=== PATIENT | female | born 1960 | race Asian ===

== ENCOUNTER → 2021-10-25 | Day surgery (SDC) | payer OTHER ==
[2021-10-23 10:39] LABS: Basophils # (auto) 0.1 10 ^3/uL (0-0.2); Basophils % (auto) 1.3 % (0.0-2.0); Eosinophils # (auto) 0 10 ^3/uL (0-0.8); Eosinophils % (auto) 0.4 % (0.0-7.0); Hematocrit 36.8 % (36.0-46.0); Hemoglobin 12.6 g/dL (12.2-16.2); Lymphocytes # (auto) 1.4 10 ^3/uL (0.4-5.4); Lymphocytes % (auto) 31.5 % (10.0-50.0); Mean Corpuscular Hemoglobin 30.1 pg (28.0-32.0); Mean Corpuscular Hgb Conc. 34.4 g/dL (32.0-36.0); Mean Corpuscular Volume 87.6 fL (80.0-100.0); Monocytes # (auto) 0.4 10 ^3/uL (0-1.3); Monocytes % (auto) 8.7 % (0.0-12.0); Neutrophils # (auto) 2.6 10 ^3/uL (1.6-8.6); Neutrophils % (auto) 58.1 % (37.0-80.0); Nucleated Red Blood Cells % 0.1 %; Red Cell Distribution Width 12.7 % (11.8-14.3); White Blood Cell 4.4 10^3/uL (4.4-10.8)
[2021-10-23 11:01] LABS: INR 0.99 (0.9-1.15); Partial Thromboplastin Time 27.1 sec (23.6-33.0)
[2021-10-23 13:14] LABS: Albumin 3.5 g/dL (3.4-5.0); Calcium 9.6 mg/dL (8.5-10.1); Potassium 4.1 mmol/L (3.5-5.1)
[2021-10-23 13:17] LABS: BUN/Creatinine Ratio 21.8; Bilirubin, Total 0.3 mg/dL (0.2-1.0); Total Protein 7.6 g/dL (6.4-8.2)
[~2021-10-25] VITALS: Ht 160 cm; Wt 60.8 kg
[~2021-10-25] MED LIST: CETI1TAB36 PO; FLUT1SPR5; LIDOCAINE VISCOUS 2% 15ML UD ONE; MIDAZOLAM HCL 5 MG/ML-1ML VIAL ONE; OMEP20TA PO; PROP60CA34 PO; SODIUM CHLORIDE LOCK 10 ML ONE; TOLT2CAP PO; diphenhdrAMINE HCL 50 MG/1 ML VL ONE; fentaNYL CITRATE 100 MCG/2 ML VL ONE
[2021-10-25 17:58] VITALS: BP 119/64
== END | disposition home or self-care (01) ==
LOC: GI 13:32
PROVIDERS: ATTEND Internal Medicine Gastroenterology
DX: K21.00 Gastro-esophageal reflux disease with esophagitis, without bleeding (principal); K44.9 Diaphragmatic hernia without obstruction or gangrene; K25.9 Gastric ulcer, unspecified as acute or chronic, without hemorrhage or perforation; K29.50 Unspecified chronic gastritis without bleeding; Z98.890 Other specified postprocedural states; Z79.899 Other long term (current) drug therapy; Z88.1 Allergy status to other antibiotic agents; Z88.6 Allergy status to analgesic agent; Z20.822 Contact with and (suspected) exposure to COVID-19
CPT/HCPCS: 36415; 43239; 80053; 85025; 85610; 85730; 88305; 88342; J1200; J2250; J3010; J7030; U0003; 99152

== ENCOUNTER → 2022-10-12 | Day surgery (SDC) | payer OTHER ==
[2022-10-10 10:06] LABS: Basophils # (auto) 0 10 ^3/uL (0-0.2); Basophils % (auto) 0.9 % (0.0-2.0); Eosinophils # (auto) 0.1 10 ^3/uL (0-0.8); Eosinophils % (auto) 1.2 % (0.0-7.0); Hematocrit 38.3 % (36.0-46.0); Hemoglobin 13.2 g/dL (12.2-16.2); Lymphocytes # (auto) 1.4 10 ^3/uL (0.4-5.4); Lymphocytes % (auto) 32.8 % (10.0-50.0); Mean Corpuscular Hemoglobin 30.6 pg (28.0-32.0); Mean Corpuscular Hgb Conc. 34.6 g/dL (32.0-36.0); Mean Corpuscular Volume 88.5 fL (80.0-100.0); Monocytes # (auto) 0.3 10 ^3/uL (0-1.3); Monocytes % (auto) 6.5 % (0.0-12.0); Neutrophils # (auto) 2.6 10 ^3/uL (1.6-8.6); Neutrophils % (auto) 58.6 % (37.0-80.0); Nucleated Red Blood Cells % 0.1 %; Red Blood Cells 4.33 10^6/uL (4.0-5.20); White Blood Cell 4.4 10^3/uL (4.4-10.8)
[2022-10-10 10:32] LABS: Albumin 3.5 g/dL (3.4-5.0); Calcium 9.1 mg/dL (8.5-10.1); Potassium 4.2 mmol/L (3.5-5.1)
[2022-10-10 10:38] LABS: BUN/Creatinine Ratio 21.2; Bilirubin, Total 0.4 mg/dL (0.2-1.0); Total Protein 7.4 g/dL (6.4-8.2)
[2022-10-10 10:53] LABS: INR 0.96 (0.9-1.15); Partial Thromboplastin Time 28.6 sec (24.6-33.4)
[~2022-10-12] VITALS: Ht 160 cm; Wt 58.1 kg
[~2022-10-12] MED LIST changes: -LIDOCAINE VISCOUS 2% 15ML UD ONE; -MIDAZOLAM HCL 5 MG/ML-1ML VIAL ONE; +SIMETHICONE 40 MG/0.6 ML ORAL DROP ONE; -SODIUM CHLORIDE LOCK 10 ML ONE; -diphenhdrAMINE HCL 50 MG/1 ML VL ONE; +fentaNYL CITRATE 100 MCG/2 ML VL IV ONE
[2022-10-12] MEDS: MIDAZOLAM HCL 2MG/2ML 2ml VIAL (1mg/ml) ONE ×2 (15:31→15:37)
[2022-10-12] MEDS: diphenhdrAMINE HCL 50 MG/1 ML VL ONE ×2 (15:31→15:36)
[2022-10-12 16:22] VITALS: BP 115/68
== END | disposition home or self-care (01) ==
LOC: GI 13:40
PROVIDERS: ATTEND Internal Medicine Gastroenterology
DX: Z12.11 Encounter for screening for malignant neoplasm of colon (principal); K64.8 Other hemorrhoids; I10 Essential (primary) hypertension; K21.9 Gastro-esophageal reflux disease without esophagitis; Z79.899 Other long term (current) drug therapy; Z20.822 Contact with and (suspected) exposure to COVID-19
CPT/HCPCS: 36415; 45378; 80053; 85025; 85610; 85730; J1200; J2250; J3010; J7030; U0003

== ENCOUNTER 2024-12-07 13:37 | Inpatient (IN) | payer OTHER ==
[~2024-12-07] VITALS: Ht 160 cm; Wt 77.0 kg
[~2024-12-07 13:37] MED LIST changes: -SIMETHICONE 40 MG/0.6 ML ORAL DROP ONE; -fentaNYL CITRATE 100 MCG/2 ML VL IV ONE; -fentaNYL CITRATE 100 MCG/2 ML VL ONE
--- NOTE | 2024-12-07 14:20 | ED.PDOC ---
History of Present Illness HPI Comments 64-year-old female brought in by EMS presents with a chief complaint of generalized weakness and speech problem. Patient has had expressive aphasia for the past x 3 days. Patient mentions that this all started when she was given Bactrim by her psychologist industrial organizational for an infection in her throat. Accu Check was 122. Vital Signs Stable. Chief Complaint: General Weakness Time Seen by MD: 14:01 Reviewed Notes: Medications, Allergies Allergies: Coded Allergies: Aspirin (Unverified Adverse Reaction, Mild, bruising, 10/24/21) Ciprofloxacin (Unverified Adverse Reaction, Mild, N/V, 10/24/21) Home Meds Reported Medications Cetirizine Hcl (ZYRTEC ALLERGY) 10 Mg Tab, 10 MG PO, TAB 10/24/21 Propranolol Hcl (Inderal La) 60 Mg Cap, 60 MG PO, CAP 10/24/21 Omeprazole (Gnp Omeprazole) 20 Mg Tab, 20 MG PO, TAB 10/24/21 Fluticasone Propionate (Nasal) (Flonase Allergy Relief) 50 Mcg/Act Spr, 50 MCG NA, SPRAY 10/24/21 Tolterodine Tartrate (Detrol La) 2 Mg Cap, 2 MG PO, CAP 10/24/21 Information Source: Patient, Emergency Med Personnel Mode of Arrival: EMS Severity: Moderate Timing: Days Duration: Since onset Prehospital treatment: Accucheck, Monitoring Manager Past Medical History PAST MEDICAL HISTORY: Asthma, HTN Surgical History: Denies all surgeries CHEMICAL DETECTION EXPERT History: Denies all CHEMICAL DETECTION EXPERT Hx Family History Family History: Reviewed,noncontributory to illness Social History Smoker: Non-Smoker Alcohol: Denies ETOH Use Drugs: Denies Drug Use Constitutional: reports: weakness; denies: chills, diaphoresis, fatigue, fever, malaise, sweats, others EENTM: denies: blurred vision, double vision, ear bleeding, ear discharge, ear drainage, ear pain, ear ringing, eye pain, eye redness, hearing loss, mouth pain, mouth swelling, nasal discharge, nose bleeding, nose congestion, nose pain, photophobia, tearing, throat pain, throat swelling, voice changes, others Respiratory: denies: cough, hemoptysis, orthopnea, SOB at rest, shortness of breath, SOB with excertion, stridor, wheezing, others Cardiovascular: denies: chest pain, dizzy spells, diaphoresis, Dyspnea on exertion, edema, irregular heart beat, left arm pain, lightheadedness, palpitations, PND, syncope, others Gastrointestinal: denies: abdomen distended, abdominal pain, blood streaked bowels, constipated, diarrhea, dysphagia, difficulty swallowing, hematemesis, melena, nausea, poor appetite, poor fluid intake, rectal bleeding, rectal pain, vomiting, others Genitourinary: denies: abnormal vagina bleeding, burning, dyspareunia, dysuria, flank pain, frequency, hematuria, incontinence, pain, , vagina discharge, urgency, others Neurological: reports: speech problems (EXPRESSIVE APHASIA); denies: dizziness, fainting, headache, left sided numbness, left sided weakness, numbness, paresthesia, pre-existing deficit, right sided numbness, right sided weakness, seizure, tingling, tremors, weakness, others Musculoskeletal: denies: back pain, gout, joint pain, joint swelling, muscle pain, muscle stiffness, neck pain, others Integumetry: denies: bruises, change in color, change in hair/nails, dryness, laceration, lesions, lumps, rash, wounds, others Allergic/Immunocompromised: denies: Difficulty Healing, Frequent Infections, Hives, Itching, others Hematologic/Lymphatic: denies: anemia, blood clots, easy bleeding, easy bruising, swollen glands, others Endocrine: denies: excessive hunger, excessive sweating, excessive thirst, excessive urination, flushing, intolerance to cold, intolerance to heat, unexplained weight gain, unexplained weight loss, others Psychiatric: denies: anxiety, bipolar disorder, depression, hopeless, panic disorder, schizophrenia, sleepless, suicidal, others All Other Systems: Reviewed and Negative Physical Exam General Appearance: No Apparent Distress, Normal HEENT: Normal ENT Inspection, Pharynx Normal, TMs Normal Neck: Full Range of Motion, Non-Tender, Normal, Normal Inspection Respiratory: Chest Non-Tender, Lungs Clear, No Accessory Muscle Use, No Res piratory Distress, Normal Breath Sounds Cardiovascular: No Edema, No JVD, No Murmur, No Gallop, Normal Peripheral Pulses, Regular Rate/Rhythm Breast Exam: Deferred Gastrointestinal: No Organomegaly, Non Tender, No Pulsatile Mass, Normal Bowel Sounds, Soft Genitalia: Deferred Pelvic: Deferred Rectal: Deferred Extremities: No calf tenderness, Normal capillary refill, Normal inspection, Normal range of motion, Non-tender, No pedal edema Musculoskeletal : Apperance: Normal Neurologic: Alert, supply chain director II-XII nml as Tested, No Motor Deficits, Normal Affect, Normal Mood, No Sensory Deficits Cerebellar Function: Normal Reflexes: Normal Skin: Dry, Normal Color, Warm Lymphatic: No Adenopathy Was a procedure done? Was a procedure done?: No Differential Dx Considerations may include: cva, intracranial mass, intracranial bleed, dehydration, electrolyte disorders, hypoglycemia, medication effects X-Ray, Labs, Meds, VS Vital Signs Date Time Temp Pulse Resp B/P (MAP) Pulse Ox O2 Delivery O2 Flow Rate FiO2 12/07/24 13:50 67 12/07/24 13:45 98.7 64 20 132/76 (94) 98 98.7 Time of 1ST Reevaluation: 14:31 Reevaluation 1ST: Unchanged Time of 2ND Reevaluation: 16:29 Reevaluation 2ND: eloped Patient Education/Counseling: Other (eloped) Family Education/Counseling: No Family Present Additional Information lab had not been able to find pt. we could not find pt. she apparently eloped Departure 1 Departure Time of Disposition: 16:29 Impression: Primary Impression: Weakness Disposition: 07 LEFT AWOL/ELOPED Condition: Other (unknown) Critical Care Note Critical Care Time?: Yes (45 min-critical care time only) Critical care comment: Due to concerns for patients condition deteriorating, the care required my highest level of attention and readiness to intervene. I assessed the patient, reviewed the medical records, ordered the appropriate tests and treatments, then reassessed for results and responsiveness. I communicated with medical personnel and consultants and formulated a plan of care. Total critical care time excludes any procedures Stability Stability form required: No Heart Score Heart Score: Heart Score Response (Comments) Value History N/A 0 EKG N/A 0 Age N/A 0 Risk Factors N/A 0 Troponin N/A 0 Total 0 I personally scribed for ROSA SAHA MD ([email or web address]) on 12/07/24 at 14:20. Electronically submitted by Marcelino Dickey ([email or web address]). ROSA SAHA MD Dec 07, 2024 14:20
--- NOTE | 2024-12-07 14:48 | ECG ---
[facility] Test Date: 2024-12-07 Test Time: 13:50:36 Pat Name: SHALONDA SEAMAN Department: ED Room: 0290 Gender: F Kiss Machine Operator: dewey : 1960 Requested By: ROSA SAHA Order Number: [id number] Reading MD: Pramod Elkins Measurements Intervals [place] Rate: 67 P: 83 OK: 135 QRS: 55 QRSD: 88 T: -29 QT: 432 QTc: 456 Interpretive Statements Sinus rhythm RSR' in V1 or V2, right VCD or RVH Baseline wander in lead(s) V2 Electronically Signed On 12-09-2024 17:08:29 PDT by Pramod Elkins Please click the below link to view image of tracing.
--- NOTE | 2024-12-07 15:01 | DVH ---
AP portable chest HISTORY: weakness Comparison: None FINDINGS: Heart size normal. Aorta tortuous. No infiltrates or effusions. IMPRESSION: 1. No acute cardiopulmonary pathology
--- NOTE | 2024-12-07 15:02 | DVH ---
CT brain without contrast CLINICAL INDICATION: Altered mental status FINDINGS: The study was performed in a multidetector scanner. This study performed taking axial image s from the skull base up to the vertex. Both brain and bone windows are photographed. Dose lowering techniques have been used including automated exposure control and adjustment of mA and /or KV according to patient size. Normal and symmetrical shape and density of brain parenchyma above and below the tentorium is seen. T here is no mass, midline shift or hydrocephalus. No intra/extra-axial collections demonstrated. There is no intracranial hemorrhage. The calvarium is intact. IMPRESSION: 1. Normal brain and skull. Computed Tomographic Radiation Dosimetry Report: Total CTDI vol = 53 mGy Total DLP = 946 mGy-cm All C T scans at this medical facility are performed using dose modulation techniques as appropriate to a p erformed exam including the following: Automated exposure control was utilized; adjustment of the MA and/or KvP according to patient size; and use of iterative reconstruction technique.
[2024-12-07 16:40] LABS: Basophils # (auto) 0 10 ^3/uL (0-0.2); Basophils % (auto) 0.5 % (0.0-2.0); Eosinophils # (auto) 0 10 ^3/uL (0-0.8); Eosinophils % (auto) 0.2 % (0.0-7.0); Hematocrit 37.4 % (36.0-46.0); Hemoglobin 12.5 g/dL (12.2-16.2); Lymphocytes # (auto) 1.3 10 ^3/uL (0.4-5.4); Lymphocytes % (auto) 29.9 % (10.0-50.0); Mean Corpuscular Hemoglobin 29.3 pg (28.0-32.0); Mean Corpuscular Hgb Conc. 33.4 g/dL (32.0-36.0); Mean Corpuscular Volume 87.7 fL (80.0-100.0); Monocytes # (auto) 0.3 10 ^3/uL (0-1.3); Monocytes % (auto) 7.9 % (0.0-12.0); Neutrophils # (auto) 2.6 10 ^3/uL (1.6-8.6); Neutrophils % (auto) 61.5 % (37.0-80.0); Nucleated Red Blood Cells % 0.1 %; Platelet Count (auto) 146 10^3/uL (140-450); Red Blood Cells 4.27 10^6/uL (4.0-5.20); Red Cell Distribution Width 13.1 % (11.8-14.3); White Blood Cell 4.3 10^3/uL (4.4-10.8)
[2024-12-07 16:51] LABS: Chloride 105 mmol/L (98-107); Potassium 3.8 mmol/L (3.5-5.1); Sodium 141 mmol/L (136-145)
[2024-12-07 16:52] LABS: Anion Gap 10 (5-15); Calcium 10.2 mg/dL (8.7-10.4); Carbon Dioxide 26 mmol/L (20-31)
[2024-12-07 16:57] LABS: BUN/Creatinine Ratio 16.3 (10.0-20.0); Blood Urea Nitrogen 14 mg/dL (9-23); Glucose 102 mg/dL (74-106)
[2024-12-07] MEDS ORDERED: ALBUTEROL SULF 2.5 MG/0.5ML(0.5%) NEB SOLN NEB PRN (23:15)
[2024-12-07] MEDS ORDERED: ACETAMINOPHEN 325 MG TAB PO PRN (23:15)
[2024-12-07] MEDS ORDERED: ONDANSETRON HCL 4 MG/2 ML VIAL IV PRN (23:15)
[2024-12-07] MEDS ORDERED: SUMAtriptan SUCCINATE 25 MG TAB PO PRN (23:15)
[2024-12-07] MEDS ORDERED: HYDROcodone-ACET 5/325MG TAB PO PRN (23:15)
[2024-12-08] VITALS (10 sets, daily range): BP systolic 127–140; BP diastolic 58–85; PULSE 60–95; RESP 12–18; TEMP 98–98.2; O2SAT 96–100
--- NOTE | 2024-12-08 04:15 | DVHHP2 ---
History of Present Illness Reason for Visit: Generalized weakness History of Present Illness 64-year-old female presents for evaluation of generalized weakness. Patient reports starting clarithromycin prescribed by her vp digital marketing social media and crm seven days ago. She states that two days after that she has developed a headache with increased fatigue, expressive aphasia, left lower extremity weakness and sensitivity to light. Patient has stopped taking the antibiotic. She states his symptoms have not subsided. Denies chest pain or shortness for breath. No slurred speech or unilateral weakness. Past Medical History Hypertension and asthma Past Surgical History Denies Family History Noncontributory Smoke: No ALCOHOL: none Drugs: None Lives: with Family Review of Systems Review of Systems Review of systems are currently negative otherwise addressed in HPI. Allergies: Coded Allergies: Aspirin (Unverified Adverse Reaction, Mild, bruising, 10/24/21) Ciprofloxacin (Unverified Adverse Reaction, Mild, N/V, 10/24/21) Medications Current Medications Medications Dose Ordered Sig/Rachelle Route Start Time Stop Time Status Last Admin Dose Admin Propranolol HCl 60 mg DAILY PO 12/08/24 10:00 Albuterol 2.5 mg Q6HPRN PRN NEB 12/07/24 23:15 Sumatriptan Succinate 50 mg Q2HP PRN PO 12/07/24 23:15 Acetaminophen/ Hydrocodone Bitart 1 tab Q4HP PRN PO 12/07/24 23:15 Ondansetron HCl 4 mg Q4HP PRN IV 12/07/24 23:15 Enoxaparin Sodium 40 mg DAILY SC 12/08/24 10:00 Acetaminophen 650 mg Q6HP PRN PO 12/07/24 23:15 Exam Vital Signs Vital Signs Date Time Temp Pulse Resp B/P (MAP) Pulse Ox O2 Delivery O2 Flow Rate FiO2 12/08/24 00:18 68 18 132/76 96 0.0 21 12/08/24 00:00 Room Air* 12/07/24 13:45 98.7 98.7 Exam Gen: 64-year-old female in no apparent distress. Skin: Warm, dry, normal color and texture, no rash. HEENT: Normocephalic atraumatic, mucous membranes moist and pink. Neck: Cervical and supraclavicular nodes normal without enlargement, trachea is midline, thyroid gland is normal without masses. Pulmonary: Clear to auscultation and percussion bilaterally. Cardiac: Regular rate and rhythm. No murmur Abdomen: Soft, nontender, nondistended, bowel sounds present all 4 quadrants, no guarding, no rigidity, no organomegaly. Extremities: No cyanosis, clubbing, no edema Neuro: Cranial nerves II through XII grossly intact, normal affect and speech, no focal motor deficits. Labs/Xrays ORDERING PHYSICIAN: ROSA SAHA MD PROCEDURE(s): HWOCT - HEAD WITHOUT CONTRAST REASON: difficulty speaking ORDER NUMBER(s): [id number], ACCESSION NUMBER(s): [id number] CT brain without contrast CLINICAL INDICATION: Altered mental status FINDINGS: The study was performed in a multidetector scanner. This study performed taking axial images from the skull base up to the vertex. Both brain and bone windows are photographed. Dose lowering techniques have been used including automated exposure control and adjustment of mA and/or KV according to patient size. Normal and symmetrical shape and density of brain parenchyma above and below the tentorium is seen. There is no mass, midline shift or hydrocephalus. No intra /extra-axial collections demonstrated. There is no intracranial hemorrhage. The calvarium is intact. IMPRESSION: 1. Normal brain and skull. Computed Tomographic Radiation Dosimetry Report: Total CTDI vol = 53 mGy Total DLP = 946 mGy-cm All CT scans at this medical facility are performed using dose modulation techniques as appropriate to a performed exam including the following : Automated exposure control was utilized; adjustment of the MA and/or KvP according to patient size; and use of iterative reconstruction technique. RING PHYSICIAN: ROSA SAHA MD PROCEDURE(s): CXRP - CHEST PORTABLE REASON: weakness ORDER NUMBER(s): [id number], ACCESSION NUMBER(s): [id number] AP portable chest HISTORY: weakness Comparison: None FINDINGS: Heart size normal. Aorta tortuous. No infiltrates or effusions. IMPRESSION: 1. No acute cardiopulmonary pathology Labs Test 12/07/24 16:15 Range/Units White Blood Count 4.3 L 4.4-10.8 10^3/uL Red Blood Count 4.27 4.0-5.20 10^6/uL Hemoglobin 12.5 12.2-16.2 g/dL Hematocrit 37.4 36.0-46.0 % Mean Corpuscular Volume 87.7 80.0-100.0 fL Mean Corpuscular Hemoglobin 29.3 28.0-32.0 pg Mean Corpuscular Hemoglobin Concent 33.4 32.0-36.0 g/dL Red Cell Distribution Width 13.1 11.8-14.3 % Platelet Count 146 140-450 10^3/uL Mean Platelet Volume 7.6 6.9-10.8 fL Neutrophils (%) (Auto) 61.5 37.0-80.0 % Lymphocytes (%) (Auto) 29.9 10.0-50.0 % Monocytes (%) (Auto) 7.9 0.0-12.0 % Eosinophils (%) (Auto) 0.2 0.0-7.0 % Basophils (%) (Auto) 0.5 0.0-2.0 % Neutrophils # (Auto) 2.6 1.6-8.6 10 ^3/uL Lymphocytes # (Auto) 1.3 0.4-5.4 10 ^3/uL Monocytes # (Auto) 0.3 0-1.3 10 ^3/uL Eosinophils # (Auto) 0 0-0.8 10 ^3/uL Basophils # (Auto) 0 0-0.2 10 ^3/uL Nucleated Red Blood Cells 0.1 % Sodium Level 141 136-145 mmol/L Potassium Level 3.8 3.5-5.1 mmol/L Chloride Level 105 98-107 mmol/L Carbon Dioxide Level 26 20-31 mmol/L Anion Gap 10 5-15 Blood Urea Nitrogen 14 9-23 mg/dL Creatinine 0.86 0.550-1.02 mg/dL Glomerular Filtration Rate Calc 76 >90 mL/min BUN/Creatinine Ratio 16.3 10.0-20.0 Serum Glucose 102 74-106 mg/dL Calcium Level 10.2 8.7-10.4 mg/dL Troponin I High Sensitivity 6 </=34 ng/L Assessment/Plan Assessment/Plan Assessment Generalized weakness Hypertension Asthma Plan Admit the patient [place] [facility] [place] of the brain pending Nephrology consultation Resume home medications Continue treatment per orders. Plan discussed with: Patient My Orders Orders - BARRIGAMALACHI Procedure Category Date Status Time Propranolol Hcl PHA 12/08/24 In Process Tablet (Inderal 10:00 Brain Head Wo Contrast MRI 12/07/24 Logged 23:06 Albuterol Medneb PHA 12/07/24 In Process (Ventolin Medneb) 23:15 Sumatriptan Succinate PHA 12/07/24 In Process Tablet (Imitrex Ta 23:15 Urinalysis LAB 12/07/24 Logged 23:06 Basic Metabolic Panel LAB 12/08/24 Logged 04:00 Admit ADMIT 12/07/24 Transmitted 23:06 Hydrocodone-Acet PHA 12/07/24 In Process 5/325mg Tab ([place] 23:15 Ondansetron Hcl PHA 12/07/24 In Process (Zofran) 23:15 Enoxaparin Sodium PHA 12/08/24 In Process (Lovenox) 10:00 Complete Blood Count LAB 12/08/24 Logged 04:00 Cardiac DIET 12/08/24 Transmitted Diet-2gna,Lofat,Lochol Breakfast Condition: Stable ROSEMARY 12/07/24 In Process 23:06 Acetaminophen Tablet PHA 12/07/24 In Process (Tylenol Tablet) 23:15 Bedrest With Bathroom ROSEMARY 12/07/24 In Process Privileg 23:06 Date of Service: Dec 07, 2024 Billing Provider: MALACHI BARRIGA Common Visit Codes: [id number] INP/OBS CARE (HIGH) MALACHI BARRIGA Dec 08, 2024 04:15
[2024-12-08 06:19] LABS: Basophils # (auto) 0 10 ^3/uL (0-0.2); Basophils % (auto) 0.3 % (0.0-2.0); Eosinophils # (auto) 0 10 ^3/uL (0-0.8); Eosinophils % (auto) 0.1 % (0.0-7.0); Hematocrit 35.7 % (36.0-46.0); Lymphocytes # (auto) 1.2 10 ^3/uL (0.4-5.4); Lymphocytes % (auto) 20.5 % (10.0-50.0); Mean Corpuscular Hemoglobin 29.6 pg (28.0-32.0); Mean Corpuscular Hgb Conc. 33.6 g/dL (32.0-36.0); Mean Corpuscular Volume 88.2 fL (80.0-100.0); Monocytes # (auto) 0.4 10 ^3/uL (0-1.3); Monocytes % (auto) 7.8 % (0.0-12.0); Neutrophils # (auto) 4.1 10 ^3/uL (1.6-8.6); Neutrophils % (auto) 71.3 % (37.0-80.0); Platelet Count (auto) 126 10^3/uL (140-450); Red Blood Cells 4.04 10^6/uL (4.0-5.20); Red Cell Distribution Width 12.7 % (11.8-14.3); White Blood Cell 5.7 10^3/uL (4.4-10.8)
[2024-12-08 06:24] LABS: Chloride 106 mmol/L (98-107); Potassium 3.6 mmol/L (3.5-5.1); Sodium 142 mmol/L (136-145)
[2024-12-08 06:25] LABS: Anion Gap 10 (5-15); Carbon Dioxide 26 mmol/L (20-31)
[2024-12-08 06:26] LABS: Calcium 9.5 mg/dL (8.7-10.4)
[2024-12-08 06:31] LABS: BUN/Creatinine Ratio 18.5 (10.0-20.0); Blood Urea Nitrogen 15 mg/dL (9-23); Glucose 93 mg/dL (74-106)
[2024-12-08 08:29] LABS: Urine Bacteria FEW /hpf (None Seen); Urine Blood 2+ /uL (Negative); Urine Clarity Clear (Clear); Urine Color Yellow (Yellow); Urine Mucus FEW (None Seen); Urine Protein, UAD TRACE (Negative); Urine Specific Gravity 1.025 (1.001-1.035); Urine Squamous Epithelial Cell FEW /hpf (<5); Urine Urobilinogen Normal (Negative); Urine WBC 42 /HPF (0-5)
--- NOTE | 2024-12-08 09:22 | DVH ---
CLINICAL INDICATION: 64 years old, Female; headache, left leg weakness. COMPARISON: CT dated 12/07/2024. TECHNIQUE: Multisequence multiplanar MRI images of the brain were obtained without contrast. FINDINGS: No acute infarct or hemorrhage. No mass or midline shift. Ventricles and sulci are within normal limits. Basal cisterns are patent. Cerebellum, brainstem, and midline structures are within no rmal limits. Mild mucosal thickening of the paranasal sinuses. Orbits are grossly unremarkable. IMPRESSION: No evidence of acute intracranial abnormality.
[2024-12-08] MEDS: PROPRANOLOL HCL 20 MG TAB PO SCH (10:00)
[2024-12-08] MEDS: ENOXAPARIN SOD 40 MG/0.4 ML SYRINGE SC SCH (10:00)
--- NOTE | 2024-12-08 13:43 | DVHPN2 ---
Progress Note Date Seen: Dec 08, 2024 Medical Necessity Reason Pt with a Central, PICC or Fol: No Subjective Patient reports: No new complaints Review of Systems: HEENT:Normal, CVS:Normal, RESPIRATORY:Normal, GI:Normal, :Normal, MSK:Normal, NEURO:Normal Objective vital signs Vital Sign Date Time Temp Pulse Resp B/P (MAP) Pulse Ox O2 Delivery O2 Flow Rate FiO2 12/08/24 10:00 69 140/72 12/08/24 09:12 96 Room Air* 0 21 12/08/24 08:00 98.4 12 98.4 medications Current Medications Medications Dose Ordered Sig/Rachelle Route Start Time Stop Time Status Last Admin Dose Admin Propranolol HCl 60 mg DAILY PO 12/08/24 10:00 12/08/24 10:00 60 MG Albuterol 2.5 mg Q6HPRN PRN NEB 12/07/24 23:15 Sumatriptan Succinate 50 mg Q2HP PRN PO 12/07/24 23:15 Acetaminophen/ Hydrocodone Bitart 1 tab Q4HP PRN PO 12/07/24 23:15 Ondansetron HCl 4 mg Q4HP PRN IV 12/07/24 23:15 Enoxaparin Sodium 40 mg DAILY SC 12/08/24 10:00 Acetaminophen 650 mg Q6HP PRN PO 12/07/24 23:15 Examination: GENERAL:Normal, HEENT:Normal, NECK:Normal, LUNGS:Normal, CVS:Normal, ABDOMEN:Normal, MSK:Normal, SKIN:Normal, NEURO:Normal, :Normal laboratory and microbiology Laboratory Tests 12/08/24 05:33 Test 12/08/24 05:33 Range/Units Serum Glucose 93 74-106 mg/dL Problem List/Assessment/Plan Problem List/Assessment/Plan #1 ?reaction to clarithromycin #2 uti: culture, iv rocephin, ivf #3 htn #4 thrombocytopenia: monitor advance care planning- full code- time spent 19 mins Plan discussed with: Patient Date of Service: Dec 08, 2024 Billing Provider: MALACHI BURRELL MD Common Visit Codes: [id number] INP/OBS CARE(HIGH) Secondary Visit Codes: [id number] CARE PLAN 30 MINUTES MALACHI BURRELL MD Dec 08, 2024 13:43
[2024-12-08] MEDS: SODIUM CHLORIDE 0.9% 1,000 ML IV SCH (13:45)
[2024-12-08] MEDS: cefTRIAXone 1GM/50ML D5W 50 ML IV ONE (14:51)
[2024-12-09] VITALS (8 sets, daily range): BP systolic 99–120; BP diastolic 55–60; PULSE 70–77; RESP 17–18; TEMP 97–98.8; O2SAT 91–98
[2024-12-09 07:44] LABS: Basophils # (auto) 0 10 ^3/uL (0-0.2); Basophils % (auto) 0.3 % (0.0-2.0); Eosinophils # (auto) 0 10 ^3/uL (0-0.8); Eosinophils % (auto) 0.4 % (0.0-7.0); Hematocrit 36.6 % (36.0-46.0); Hemoglobin 12.4 g/dL (12.2-16.2); Lymphocytes # (auto) 1.1 10 ^3/uL (0.4-5.4); Lymphocytes % (auto) 24.1 % (10.0-50.0); Mean Corpuscular Hemoglobin 29.8 pg (28.0-32.0); Mean Corpuscular Volume 87.7 fL (80.0-100.0); Monocytes # (auto) 0.3 10 ^3/uL (0-1.3); Neutrophils # (auto) 3.2 10 ^3/uL (1.6-8.6); Neutrophils % (auto) 68.2 % (37.0-80.0); Platelet Count (auto) 136 10^3/uL (140-450); Red Blood Cells 4.17 10^6/uL (4.0-5.20); Red Cell Distribution Width 12.9 % (11.8-14.3); White Blood Cell 4.7 10^3/uL (4.4-10.8)
[2024-12-09 07:58] LABS: Alanine Aminotransferase 16 U/L (7-40); Albumin 3.9 g/dL (3.2-4.8); Alkaline Phosphatase 73 U/L (46-116); Anion Gap 10 (5-15); Aspartate Aminotransferase 21 U/L (13-40); BUN/Creatinine Ratio 18.5 (10.0-20.0); Blood Urea Nitrogen 15 mg/dL (9-23); Calcium 9.3 mg/dL (8.7-10.4); Carbon Dioxide 25 mmol/L (20-31); Glucose 98 mg/dL (74-106); Potassium 3.8 mmol/L (3.5-5.1); Sodium 144 mmol/L (136-145); Total Protein 6.5 g/dL (5.7-8.2)
[2024-12-09 07:59] LABS: Bilirubin, Total 0.6 mg/dL (0.2-1.0); Chloride 109 mmol/L (98-107)
[2024-12-09] MEDS: cefTRIAXone 1GM/50ML D5W 50 ML IV SCH (09:53)
--- NOTE | 2024-12-09 11:27 | DVHDS2 ---
Discharge Summary Date of Admission Dec 07, 2024 at 23:06 Date of Discharge: Dec 09, 2024 Labs/Diagnostic Data: Laboratory Results Test 12/09/24 06:31 12/08/24 08:11 12/07/24 16:15 White Blood Count 4.7 10^3/uL (4.4-10.8) Red Blood Count 4.17 10^6/uL (4.0-5.20) Hemoglobin 12.4 g/dL (12.2-16.2) Hematocrit 36.6 % (36.0-46.0) Mean Corpuscular Volume 87.7 fL (80.0-100.0) Mean Corpuscular Hemoglobin 29.8 pg (28.0-32.0) Mean Corpuscular Hemoglobin Concent 34.0 g/dL (32.0-36.0) Red Cell Distribution Width 12.9 % (11.8-14.3) Platelet Count 136 10^3/uL (140-450) Mean Platelet Volume 7.9 fL (6.9-10.8) Neutrophils (%) (Auto) 68.2 % (37.0-80.0) Lymphocytes (%) (Auto) 24.1 % (10.0-50.0) Monocytes (%) (Auto) 7.0 % (0.0-12.0) Eosinophils (%) (Auto) 0.4 % (0.0-7.0) Basophils (%) (Auto) 0.3 % (0.0-2.0) Neutrophils # (Auto) 3.2 10 ^3/uL (1.6-8.6) Lymphocytes # (Auto) 1.1 10 ^3/uL (0.4-5.4) Monocytes # (Auto) 0.3 10 ^3/uL (0-1.3) Eosinophils # (Auto) 0 10 ^3/uL (0-0.8) Basophils # (Auto) 0 10 ^3/uL (0-0.2) Nucleated Red Blood Cells 0.0 % Sodium Level 144 mmol/L (136-145) Potassium Level 3.8 mmol/L (3.5-5.1) Chloride Level 109 mmol/L (98-107) Carbon Dioxide Level 25 mmol/L (20-31) Anion Gap 10 (5-15) Blood Urea Nitrogen 15 mg/dL (9-23) Creatinine 0.81 mg/dL (0.550-1.02) Glomerular Filtration Rate Calc 82 mL/min (>90) BUN/Creatinine Ratio 18.5 (10.0-20.0) Serum Glucose 98 mg/dL (74-106) Calcium Level 9.3 mg/dL (8.7-10.4) Total Bilirubin 0.6 mg/dL (0.2-1.0) Aspartate Amino Transferase (AST) 21 U/L (13-40) Alanine Aminotransferase (ALT) 16 U/L (7-40) Alkaline Phosphatase 73 U/L (46-116) Total Protein 6.5 g/dL (5.7-8.2) Albumin 3.9 g/dL (3.2-4.8) Urine Color Yellow (Yellow) Urine Clarity Clear (Clear) Urine pH 6.0 (5.0-9.0) Urine Specific [place] 1.025 (1.001-1.035) Urine Protein Trace (Negative) Urine Ketones 2+ (Negative) Urine Blood 2+ /uL (Negative) Urine Nitrite Negative (Negative) Urine Bilirubin Negative (Negative) Urine Urobilinogen Normal mg/dL (Negative) Urine Leukocyte Esterase 2+ /uL (Negative) Urine RBC 78 /hpf (0 - 4) Urine Microscopic WBC 42 /HPF (0-5) Urine Squamous Epithelial Cells Few /hpf (<5) Urine Bacteria Few /hpf (None Seen) Urine Mucus Few (None Seen) Urine Glucose Normal mg/dL (Normal) Troponin I High Sensitivity 6 ng/L (</=34) Other Laboratory Tests 12/09/24 06:31 Brief Hx & Hospital Course: see dictated note Condition at Discharge: Good Final Diagnosis/Problems List uti Discharge Disposition: Home Discharge Instruct/Medications Diet: Cardiac 2g Na,low cholest Activity: No Restrictions, As Tolerated Follow Up/Referral: fu with pcp in 1 wk Medications: resume home meds except clarithromycin script to pharmacy Discharge Statement: "Patient was advised to return to the ER or call 911 if any headaches, dizziness, shortness of breath, chest pain, abdominal pain, bleeding, fevers, or worsening of medical condition. Patient was counseled about treatment plan, medications, possible side effects, patientverbalized understanding. All questions were answered to the best of my ability. This discharge took greater then 30 minutes in planning, reviewing documentation, counseling the patient, and discussing with other team members." ASSESSMENT ASSESSMENT Assessment uti Date of Service: Dec 09, 2024 Billing Provider: MALACHI BURRELL MD Common Visit Codes: [id number] DISCH DAY >30min MALACHI BURRELL MD Dec 09, 2024 11:27
[2024-12-09] MEDS ORDERED: CEFD300C2 PO (11:28)
--- NOTE | 2024-12-09 11:50 | DVHDS ---
DATE OF DISCHARGE: 12/09/2024 HISTORY OF PRESENT ILLNESS: The patient is a 64-year-old lady who was admitted after she had generalized weakness, fatigue, lower extremity weakness after she was started on clarithromycin. She has a history of hypertension and asthma. HOSPITAL COURSE: The patient had a brain MRI that was negative. Chest x-ray was negative. UA showed evidence of UTI. Chemistries and CBC were within normal limits. The patient is now feeling well and will be discharged home to be on Cefdinir 300 mg p.o. b.i.d. for 7 days. She will follow up with her primary in 1 week. FINAL DIAGNOSES: * Likely reaction to clarithromycin. * UTI. * Hypertension. * Asthma. * Thrombocytopenia. Time spent in discharge plan and review of plan with the patient and family at bedside was 38 minutes. MD ROSANGELA Sanchez/SONIA TID: [id number] RECEIPT: [id number]
== END 2024-12-09 16:25 | disposition home or self-care (01) | DRG 690 ==
LOC: EDBD 13:37 → ER 13:47 → OVERFLOW 23:06 → WEST WING 12-08 20:50
PROVIDERS: ADMIT Internal Medicine; ATTEND Internal Medicine
DX: N39.0 Urinary tract infection, site not specified (principal); R47.01 Aphasia; T36.3X5A Adverse effect of macrolides, initial encounter; I10 Essential (primary) hypertension; J45.909 Unspecified asthma, uncomplicated; D69.6 Thrombocytopenia, unspecified; Z88.6 Allergy status to analgesic agent; Z88.1 Allergy status to other antibiotic agents; Z79.899 Other long term (current) drug therapy; Y92.89 Other specified places as the place of occurrence of the external cause
CPT/HCPCS: 36415; 70450; 70551; 71045; 80048; 80053; 81001; 84484; 85025; 87086; 93005; 99291; G0378